=== PATIENT | male | born 1995 | race Caucasian/White ===

== ENCOUNTER 2017-02-05 12:07 | Emergency (ER) | payer MEDICAID ==
[~2017-02-05] VITALS: Ht 182.9 cm; Wt 91.0 kg
[2017-02-05] MEDS ORDERED: MORPHINE SULFATE 4 MG/ML CPJ (NOT FOR IM USE) IV ONE (12:45)
[2017-02-05] MEDS ORDERED: TETANUS, DIPHTHERIA, PERTUSSIS VAC/PF 0.5ML (>7YR OLD) IM ONE (12:45)
[2017-02-05] MEDS ORDERED: SODIUM CHLORIDE 0.9% 1,000 ML IV ONE (13:00)
[2017-02-05] MEDS ORDERED: ONDANSETRON HCL 4MG/2ML VIAL IV ONE (13:00)
[2017-02-05] MEDS ORDERED: SILVER SULFADIAZINE 1% CREAM 25GM TOP ONE ×2 (13:30→13:45)
[2017-02-05 14:54] VITALS: BP 152/79
== END 2017-02-05 14:56 | disposition home or self-care (01) ==
LOC: ER 12:07
DX: T21.22XA Burn of second degree of abdominal wall, initial encounter (principal); T22.10XA Burn of first degree of shoulder and upper limb, except wrist and hand, unspecified site, initial encounter; X16.XXXA Contact with hot heating appliances, radiators and pipes, initial encounter; Y93.89 Activity, other specified; Y92.89 Other specified places as the place of occurrence of the external cause; Y99.0 Civilian activity done for income or pay
CPT/HCPCS: 16020; 90471; 90715; 96361; 96374; 96375; 99285; J2270; J2405; J7030; X7700; Z7610

== ENCOUNTER 2017-02-06 12:22 | Emergency (ER) | payer MEDICAID ==
[~2017-02-06] VITALS: Ht 182.9 cm; Wt 100.0 kg
[2017-02-06 15:15] VITALS: BP 138/78
== END 2017-02-06 15:16 | disposition home or self-care (01) ==
LOC: ER 14:03
DX: T23.201A Burn of second degree of right hand, unspecified site, initial encounter (principal); T21.29XA Burn of second degree of other site of trunk, initial encounter; T31.0 Burns involving less than 10% of body surface; X58.XXXA Exposure to other specified factors, initial encounter; Y93.89 Activity, other specified; Y99.8 Other external cause status; Y92.89 Other specified places as the place of occurrence of the external cause
CPT/HCPCS: 99283; Z7610